=== PATIENT | female | born 1960 | race Caucasian/White ===

== ENCOUNTER → 2021-07-05 | Outpatient (CLI) | payer BC ==
[~2021-07-05] MED LIST: ASPIRIN 81M81 MG/TA2 PO; CALCIUM WITH D31 CTB PO; CYTOMEL 5MC5 MCG/TAB PO; FLOVENT DI100 MCG/Ac IH; HYDRODIURIL50 MG PO; IBU600 MG PO; LOPRESSOR 550 MG/TAB PO; MAG OX 250 PO; MIRALAX PA17 GM/Dose PO; MULTIPLE VITAMI1 TA5 PO; ROCALTROL0.5 MCG PO; SYNTHROID0.112 MG/T PO; TAZTIA240 PO; TYLENOL 500MG500 MG PO; VOLTAREN 75 DR75 MG PO
== END ==
LOC: COL.RAD 07:13
DX: C18.7 Malignant neoplasm of sigmoid colon (principal); N28.89 Other specified disorders of kidney and ureter; Z90.89 Acquired absence of other organs; Z90.710 Acquired absence of both cervix and uterus
CPT/HCPCS: Q9967

== ENCOUNTER 2021-07-07 08:56 | Inpatient (IN) | payer BC ==
[~2021-07-07] VITALS: Ht 157.5 cm; Wt 93.0 kg
[2021-07-19] VITALS (9 sets, daily range): BP systolic 113–134; BP diastolic 55–81; PULSE 87–106; TEMP 97.5–98.9
[2021-07-19] MEDS ORDERED: ROCALTROL0.5 MCG PO (11:11)
[2021-07-19] MEDS ORDERED: CALCIUM WITH D31 CTB PO ×2 (11:14→11:15)
[2021-07-19] MEDS ORDERED: VOLTAREN 75 DR75 MG PO (11:15)
[2021-07-19] MEDS ORDERED: TAZTIA240 PO (11:18)
[2021-07-19] MEDS ORDERED: FLOVENT DI100 MCG/Ac IH (11:28)
[2021-07-19] MEDS ORDERED: HYDRODIURIL50 MG PO (11:28)
[2021-07-19] MEDS ORDERED: CYTOMEL 5MC5 MCG/TAB PO (11:29)
[2021-07-19] MEDS ORDERED: ASPIRIN 81M81 MG/TA2 PO (11:30)
[2021-07-19] MEDS ORDERED: MAG OX 250 PO (11:30)
[2021-07-19] MEDS ORDERED: LOPRESSOR 550 MG/TAB PO (11:31)
[2021-07-19] MEDS ORDERED: MIRALAX PA17 GM/Dose PO (11:32)
[2021-07-19] MEDS ORDERED: MULTIPLE VITAMI1 TA5 PO (11:33)
[2021-07-19] MEDS ORDERED: SYNTHROID0.112 MG/T PO ×2 (11:35→11:36)
[2021-07-19] MEDS ORDERED: TYLENOL 500MG500 MG PO (11:37)
--- NOTE | 2021-07-19 17:00 | NUR ---
Pt recently arrived to the floor from surgery. Incisions are well approximated, no redness or drainage and no dressing. IV to left hand with fluids infusing. Pt has no pain complaints at this time. Lung sounds clear and heart rate regular, with murmur. Bowel sounds hypoactive all quadrants. SCDs on bilaterally. at bedside, call light within reach
--- NOTE | 2021-07-19 21:00 | NUR ---
Pt. laying in bed Pt. is A&XO3, assessment complete. IV to lt. hand patent. Dressings to abd. incisions CDI. Pt. denies pain or other needs, call light within reach.
[2021-07-20 04:22] VITALS: BP 112/79; PULSE 79; TEMP 98.3
[2021-07-20 07:51] LABS: HEMATOCRIT 39.4 % (37.0-47.0); HEMOGLOBIN 13.2 g/dl (12.5-16.0); MEAN CELL VOLUME 93 fl (80.0-100.0); MEAN CORPUSCULAR HEMOGLOBIN 31 pg (27.0-31.0); MEAN CORPUSCULAR HGB CONC 34 g/dl (33.0-37.0); MEAN PLATELET VOLUME 10.7 fl (7.4-10.4); PLATELET COUNT 392 K/mm3 (130-400); RED BLOOD COUNT 4.25 M/mm3 (4.10-5.30)
[2021-07-20 08:00] VITALS: BP 118/80; PULSE 78; TEMP 98
[2021-07-20 08:13] LABS: CALCIUM 8.2 mg/dL (8.4-10.2); CREATININE, serum 0.98 mg/dL (0.57-1.11); POTASSIUM 3.7 mmol/L (3.5-4.5)
[2021-07-20 08:35] LABS: BAND 8 % (0-10); LYMPHOCYTE 6 % (20.0-51.0); NEUTROPHILS 84 % (42.0-75.2); PLATELET ESTIMATE NORMAL (NORMAL)
--- NOTE | 2021-07-20 09:27 | NUR ---
SW met with the patient to discuss discharge plan. The patient live in [place] with her , Guy ([phone]). She reports independence with ADLs and does not have any DME. The patient's PCP is Dr. Hernandez Post and she receives her medications from [facility] in . She reports no difficulties obtaining her meds. The patient does not have a DPOA-HC and she was not interested in completing one at this time. The patient plans to return home with her upon discharge. No additional needs at this time. *Discharge plan: home with *
[2021-07-20 13:00] VITALS: BP 116/62; PULSE 86; TEMP 97.5
--- NOTE | 2021-07-20 13:04 | NUR ---
Initial visit; Patient thanked Equipment Service Engineer for looking in on her and offering God's blessings.
--- NOTE | 2021-07-20 13:32 | NUR ---
AGREE WITH STUDENT AMMENDED ASESSMENTS. THIS SHIFT.
[2021-07-20 16:56] VITALS: BP 106/58; PULSE 83; TEMP 98
--- NOTE | 2021-07-20 18:59 | NUR ---
RECEIVED CHANGE OF SHIFT REPORT FROM DAY SHIFT NURSE. INT TO L HAND IN PLACE. DENIES ANY NEEDS AT THIS TIME.
--- NOTE | 2021-07-20 20:00 | NUR ---
PATIENT UP IN ROOM INDEPENDENTLY WITH NO REPORTED PROBLEMS OR CONCERNS. DOES NOT WEAR SCD DUE TO INDEPENDENT IN ROOM WITH STEADY GAIT. DENIES ANY NEEDS AT THIS TIME.
[2021-07-20 20:22] VITALS: BP 110/58; PULSE 88; TEMP 97.9
[2021-07-20 23:06] VITALS: BP 98/55; PULSE 80; TEMP 98.2
--- NOTE | 2021-07-21 02:12 | NUR ---
DENIED ANY COMPLAINTS OR NEEDS. UP TO BATHROOM TO VOID WITH NO REPORTED PROBLEMS OR CONCERNS.
[2021-07-21 04:08] VITALS: BP 100/58; PULSE 77; TEMP 98.1
--- NOTE | 2021-07-21 05:44 | NUR ---
PATIENT RESTING, CONTINUES TO BE UP IN ROOM PER SELF WITH NO PROBLEMS. DOES NOT WEAR SCD DUE TO INDEPENDENT STATUS.
[2021-07-21 07:20] VITALS: BP 126/66; PULSE 74; TEMP 97.8
--- NOTE | 2021-07-21 07:24 | NUR ---
Pt sitting up in the chair, reports feeling well. She has ordered breakfast, call light within reach.
--- NOTE | 2021-07-21 07:25 | NUR ---
CHANGE OF SHIFT REPORT GIVEN TO DAY SHIFT NURSESAURAV RN WITH A STUDENT NURSE PRESENT.
[2021-07-21] MEDS ORDERED: IBU600 MG PO (11:47)
--- NOTE | 2021-07-21 12:10 | NUR ---
Pt continues to do well. She does have orders to go home, reports that her ride would be here around 3:00pm. Pain is tolerable, denies the need for pain medication. Pt has ordered her lunch and is waiting on it. No needs verbalized, call light within reach
[2021-07-21 13:03] VITALS: BP 127/65; PULSE 72; TEMP 98
--- NOTE | 2021-07-21 13:06 | NUR ---
Heart regular, lung sounds clear to ausculation, bowel sounds active x 4, patient passing flatus, independent in room, planning to discharge
--- NOTE | 2021-07-21 14:47 | NUR ---
Reviewed discharge instructions with pt and her . All questions answered. INT removed from left hand. Pt escorted out
== END 2021-07-21 15:00 | disposition home or self-care (01) | DRG 330 ==
LOC: INPTSU 07-19 09:07 → SURG 07-19 09:07
PROVIDERS: Urology; ADMIT Surgery
PROC: 0TC78ZZ Extirpation of Matter from Left Ureter, Via Natural or Artificial Opening Endoscopic (ICD-10-PCS; 2021-07-19)
PROC: 0DTN4ZZ Resection of Sigmoid Colon, Percutaneous Endoscopic Approach (ICD-10-PCS; principal; 2021-07-19 11:00)
PROC: 0DNM4ZZ Release Descending Colon, Percutaneous Endoscopic Approach (ICD-10-PCS; 2021-07-19 11:00)
PROC: 8E0W4CZ Robotic Assisted Procedure of Trunk Region, Percutaneous Endoscopic Approach (ICD-10-PCS; 2021-07-19 11:00)
DX: C18.7 Malignant neoplasm of sigmoid colon (principal); N20.1 Calculus of ureter; I10 Essential (primary) hypertension; E03.9 Hypothyroidism, unspecified; J30.2 Other seasonal allergic rhinitis; K59.09 Other constipation; Z20.822 Contact with and (suspected) exposure to COVID-19; Z79.82 Long term (current) use of aspirin; Z88.2 Allergy status to sulfonamides
CPT/HCPCS: A4314; C1769; J0330; J1650; J2250; J2704; J2795; J3010; J7120; Q9967

== ENCOUNTER → 2021-10-10 | Outpatient (CLI) | payer BC | LOC: COL.VAS 08:04 | DX: M79.89 Other specified soft tissue disorders (principal); M79.605 Pain in left leg ==

== ENCOUNTER → 2022-01-31 | Outpatient (CLI) | payer BC | LOC: COL.RAD 08:05 | DX: N83.201 Unspecified ovarian cyst, right side (principal); N28.1 Cyst of kidney, acquired; R16.0 Hepatomegaly, not elsewhere classified; C18.7 Malignant neoplasm of sigmoid colon; Z90.710 Acquired absence of both cervix and uterus | CPT/HCPCS: Q9967 ==

== ENCOUNTER → 2022-12-11 | Outpatient (CLI) | payer BC | LOC: COL.RAD 09:31 | DX: R59.9 Enlarged lymph nodes, unspecified (principal); C18.7 Malignant neoplasm of sigmoid colon | CPT/HCPCS: Q9967 ==